=== PATIENT | male | born 1950 | race American Indian/Alaskan Native ===

== ENCOUNTER 2017-10-11 08:01 | Outpatient (CLI) | payer OTHER ==
--- NOTE | 2017-10-11 10:43 | Ultrasound Report ---
ULTRASOUND ABDOMINAL AORTA: 10/11/17 08:15:00 CLINICAL: AAA screening FINDINGS: Ultrasound of the abdominal aorta demonstrates a normal size aorta measuring 2.4 cm maximum. No abdominal aortic aneurysm. Minimal plaque. Right common iliac artery measures 1.3 cm diameter and the left common iliac artery measures 1.3 cm diameter. Normal blood flow demonstrated by color Doppler. IMPRESSION: Normal aorta
== END 2017-10-11 08:02 | disposition home or self-care (01) ==
LOC: SPVWC 08:01
PROVIDERS: ATTEND Internal Medicine
DX: Z13.6 Encounter for screening for cardiovascular disorders (principal); R09.89 Other specified symptoms and signs involving the circulatory and respiratory systems; Z87.891 Personal history of nicotine dependence
CPT/HCPCS: 76705

== ENCOUNTER 2021-07-15 07:40 | Day surgery (SDC) | payer MEDICARE, OTHER ==
[~2021-07-15 07:40] MED LIST: BUPIVACAINE/PF (0.5%) 5 MG/1 ML 30 ML VIAL INFILTRATI ONE; HEPARIN 10,000 UNITS/10 ML VIAL IV ONE; HEPARIN 10,000 UNITS/10 ML VIAL ONE; LIDOCAINE (1%) 10 MG/1 ML VIAL 20 ML MDV ONE; SODIUM CHLORIDE 0.9% 500 ML 500 ML ONE; SODIUM CHLORIDE 0.9% IRR 1,500 ML BOTTLE IR ONE; SODIUM CHLORIDE 0.9% IRR 500 ML BOTTLE IR ONE; SODIUM CHLORIDE 0.9% P/F 10 ML VIAL IV ONE; ceFAZolin/STERILE WATER 2 GM/20 ML SYRINGE IV NR; rifAMPin 600 MG VIAL IV ONE
[2021-07-15] MEDS ORDERED: SODIUM CHLORIDE 0.9% 1000 ML 1,000 ML ONE (08:07)
[2021-07-15 08:11] LABS: Hematocrit 32.9 % (35.5-45.6); Hemoglobin 10.6 gm/dl (11.8-15.2); Mean Corpuscular HGB Conc 32 % (32-34); Mean Corpuscular Volume 97 fl (84-94); Platelet Count 183 K/mm3 (140-440); Red Blood Count 3.38 M/mm3 (3.65-5.03); Red Cell Distribution Width 16.1 % (13.2-15.2)
[2021-07-15] MEDS ORDERED: BUPIVACAINE/PF (0.5%) 5 MG/1 ML 30 ML VIAL INFILTRATI ONE (08:30)
[2021-07-15] MEDS ORDERED: MIDAZOLAM 2 MG/2 ML INJ ONE ×2 (08:30→09:10)
[2021-07-15] MEDS ORDERED: dexAMETHasone 4 MG/ML VIAL ONE (08:30)
[2021-07-15] MEDS ORDERED: LIDOCAINE (1%) 10 MG/1 ML VIAL 20 ML MDV ONE (08:30)
[2021-07-15] MEDS ORDERED: fentaNYL 100 MCG/2 ML INJ ONE (08:31)
--- NOTE | 2021-07-15 08:33 | Anesthesia Day of Surgery ---
Anesthesia Day of Surgery - Day of Surgery Patient Examined: Yes Patient H&P Reviewed: Yes Patient is NPO: Yes Beta Blockers: Yes
--- NOTE | 2021-07-15 08:37 | Anesthesia Consultation ---
Anesthesia Consult and Med Hx Date of service: 07/15/21 - Airway Anesthetic Teeth Evaluation: Caps ROM Head & Neck: Adequate Mental/Hyoid Distance: Adequate Mallampati Class: Class II Intubation Access Assessment: Good - Pre-Operative Health Status ASA Pre-Surgery Classification: ASA3 Nerve Block: IS (Block; GA if needed) - Pulmonary Hx Smoking: No (FORMER) Hx Asthma: Yes Hx Sleep Apnea: Yes - Cardiovascular System Hx Hypertension: Yes (Hx CHF; states no issues now) Hx Coronary Artery Disease: No (Had stress test last year and states it was ok) Hx Peripheral Vascular Disease: Yes - Central Nervous System Hx Neuromuscular Disorder: Yes (Gout) Hx Psychiatric Problems: No - Gastrointestinal Hx Gastroesophageal Reflux Disease: Yes (Occasionally, dietary) - Endocrine Hx Renal Disease: Yes Hx End Stage Renal Disease: Yes (Last HD yesterday. Pt states potassium runs high) Hx Non-Insulin Dependent Diabetes: Yes - Hematic Hx Anemia: Yes Hx Sickle Cell Disease: No - Other Systems Hx Alcohol Use: No Hx Substance Use: No Hx Cancer: No
[2021-07-15] MEDS ORDERED: HYDROmorphone 1 MG/1 ML INJ IV PRN ×2 (08:39)
[2021-07-15] MEDS ORDERED: ONDANSETRON 4 MG/2 ML INJ IV PRN (08:39)
[2021-07-15] MEDS ORDERED: SODIUM CHLORIDE 0.9% 250ML 0 ML ONE (08:43)
[2021-07-15] MEDS ORDERED: rifAMPin 600 MG VIAL ONE (08:43)
[2021-07-15] MEDS ORDERED: SODIUM CHLORIDE P/F VIAL 10 ML 0 ML ONE (08:43)
[2021-07-15] MEDS ORDERED: SODIUM CHLORIDE 0.9% 1000 ML 1,000 ML IV SCH (08:45)
--- NOTE | 2021-07-15 08:55 | Short Stay Summary ---
Short Stay Documentation Date of service: 07/15/21 Narrative H&P: The patient is a 70-year-old male with a history of end-stage renal disease who is currently on hemodialysis through a right brachiocephalic arteriovenous fistula. Despite the fistula having an arterial anastomosis at the brachial artery the fistula runs in retrograde fashion through the forearm cephalic vein and this is the actual cannulation zone. This causes swelling in the patient's right arm and hand as well as decrease clearance on dialysis. The patient has had the fistula for nearly a year and has had multiple interventions and despite interventions this is not corrected the direction of flow. He is in need of revision of the fistula with distalization of the anastomosis of the cephalic vein to the radial artery and ligation of the anastomosis of the brachial artery. The plan was discussed with the patient who expressed understanding and agrees. - History Past Medical History: anemia, CAD, diabetes, dialysis, ESRD, heart failure, hypertension, hyperlipidemia, other (Sleep apnea, asthma) Past Surgical History: appendectomy, cataract removal, Other (Creation of right brachiocephalic arteriovenous fistula) Social history: - Allergies and Medications Current Medications: Allergies No Known Allergies Allergy (Verified 06/17/21 16:50) Home Medications Medication Instructions Recorded Confirmed Last Taken Type Albuterol Sulfate [Proair 90 mcg IH PRN PRN 06/17/21 06/17/21 Unknown History Respiclick] Aspirin [Aspirin BABY CHEW TAB] 81 mg PO QDAY 06/17/21 06/17/21 Unknown History Cinacalcet [Sensipar] 30 mg PO QDAY 06/17/21 06/17/21 Unknown History Doxazosin [Cardura] 1 mg PO QDAY 06/17/21 06/17/21 Unknown History Ergocalciferol(Vitamin D2)(Nf) 1,250 mcg PO DAILY 06/17/21 06/17/21 Unknown History [Vitamin D (Nf)] Folic Acid/Vit B Complex and C 800 mcg PO DAILY 06/17/21 06/17/21 Unknown History [Dialyvite 800 Chewable Wafer] Furosemide [Lasix TAB] 80 mg PO BID 06/17/21 06/17/21 Unknown History ISOSORBIDE MONOnitrate [Imdur ER] 30 mg PO DAILY 06/17/21 06/17/21 Unknown History Insulin Aspart (Nf) [NovoLOG 0 units SQ AC PRN 06/17/21 06/17/21 Unknown History Flexpen] Insulin Detemir [Levemir Flextouch] 0 unit SQ HS PRN 06/17/21 06/17/21 Unknown History Ondansetron (Nf) [Zofran TAB] 4 mg PO Q12HR 06/17/21 06/17/21 Unknown History allopurinoL [Zyloprim] 100 mg PO BID 06/17/21 06/17/21 Unknown History amLODIPine [Norvasc] 10 mg PO DAILY 06/17/21 06/17/21 Unknown History carvediloL [Coreg] 12.5 mg PO BID 06/17/21 06/17/21 Unknown History hydrALAZINE [Apresoline TAB] 100 mg PO TID 06/17/21 06/17/21 Unknown History Active Medications Cefazolin Sodium (Cefazolin/Sterile Water 2 Gm/20 Ml Syringe) 2 gm IV PREOP NR Stop: 07/15/21 23:01 Hydromorphone HCl (Hydromorphone 1 Mg/1 Ml Inj) 0.25 mg IV Q10MIN PRN PRN Reason: Pain, Moderate (4-6) Hydromorphone HCl (Hydromorphone 1 Mg/1 Ml Inj) 0.5 mg IV Q10MIN PRN PRN Reason: Pain , Severe (7-10) Sodium Chloride (Nacl 0.9% 1000 Ml) 1,000 mls @ 42 mls/hr IV DIRECT KYE Ondansetron HCl (Ondansetron 4 Mg/2 Ml Inj) 4 mg IV ONCE PRN PRN Reason: Nausea And Vomiting Stop: 07/15/21 23:59 - Physical exam General appearance: no acute distress Lungs: Normal air movement Heart: Regular rate Gastrointestinal: normal Male Genitourinary: deferred Rectal Exam: deferred Extremities: abnormal (Right arm arteriovenous fistula with pulsatility in the forearm and thrill in the upper arm, swelling of the right hand with increased venous dilatation) - Brief post op/procedure progress note Date of procedure: 07/15/21 Pre-op diagnosis: Complications of Dialysis Access Post-op diagnosis: same Procedure: 1. Revision of Right Brachiocephalic Arteriovenous Fistula with Ligation of the Brachial Artery Anastomosis And Distalization of the Anastomosis to the Radial Artery 2. Revision of the Venous Outflow of the Right Arm Arteriovenous Fistula with Patch Angioplasty with Bovine Pericardial Patch Anesthesia: MAC, regional Surgeon: VICK ARMIJO Estimated blood loss: 50-100ml Pathology: none Condition: stable - Disposition Condition at discharge: Good Disposition: 01 HOME / SELF CARE / HOMELESS Short Stay Discharge Plan Activity: other (No heavy lifting with right arm for 2 weeks. Okay to continue using the right arm arteriovenous access for dialysis.) Wound: open to air, keep clean and dry, other (Okay to wash the right arm wounds with soap and water but do not soak in water for 2 weeks.) Follow up with: VICK ARMIJO MD [Staff Physician] - 14 Days Prescriptions: HYDROcodone/APAP 7.5-325 [[place] 7.5/325] 1 each PO Q6HR PRN #30 tablet PRN Reason: Pain
[2021-07-15] MEDS ORDERED: HYDROmorphone 1 MG/1 ML INJ ONE (09:10)
[2021-07-15] MEDS ORDERED: propofoL 200 MG/20 ML VIAL IV ONE ×2 (09:26)
[2021-07-15] MEDS ORDERED: KETAMINE/STERILE WATER 50 MG/ML SYRINGE ONE (09:30)
[2021-07-15] MEDS ORDERED: SODIUM CHLORIDE 0.9% IRR 1,500 ML BOTTLE IR ONE (10:02)
[2021-07-15] MEDS ORDERED: HEPARIN 10,000 UNITS/10 ML VIAL IV ONE (10:02)
[2021-07-15] MEDS ORDERED: SODIUM CHLORIDE 0.9% IRR 500 ML BOTTLE IR ONE (10:02)
--- NOTE | 2021-07-15 12:42 | Operative Report ---
Operative Report Operative Report: Date of Procedure: 07/15/2021 Pre-operative Diagnosis: Complications of Dialysis Access Post-operative Diagnosis: Same Procedure(s): 1. Revision of Right Brachiocephalic Arteriovenous Fistula with Ligation of the Brachial Artery Anastomosis And Distalization of the Anastomosis to the Radial Artery 2. Revision of the Venous Outflow of the Right Arm Arteriovenous Fistula with Patch Angioplasty with Bovine Pericardial Patch Surgeon: Ronnie Rivers M.D. Casting [employer] Pasting Supervisor: None Anesthesia: MAC/Regional EBL: 75 mL Counts: Correct Complications: None Condition: Stable Findings: There was a palpable thrill in the right arm arteriovenous fistula at the completion of the case. Specimen: None Indication: The patient is a 70-year-old male with history of end-stage renal disease who had creation of a right brachiocephalic arteriovenous fistula. Since the creation of the fistula it has run retrograde into the forearm portion of the cephalic vein and this is where it has been cannulated for dialysis. This is caused swelling and pain of his hand as well as decreased clearance while on dialysis. He is in need of revision of the fistula with distalization of the anastomosis to the radial artery to improve the clearance as well as decrease the venous congestion of his hand. He has been given the risk, benefits, and alternative procedures and consented to procedure. Description of Procedure: Prior to being transported to the operating room the patient had a regional block performed on his right arm. He was then transported to the operating room and adequately sedated. His right arm was then prepped and draped in normal sterile fashion. A longitudinal incision was then created on the distal wrist and sharp dissection was used to dissect down to the cephalic vein. The vein was then dissected circumferentially and side branches were suture ligated and divided. The vein was then left in place while I dissected the radial artery circumferentially and controlled with Vesseloops, in preparation for the arterial anastomosis. I then created a transverse incision, just below the ante cubital crease through the previously used incision, and carried this down to the anastomosis of his arteriovenous fistula. I used sharp dissection to dissect down to the anastomosis which had a stalk extending from the cephalic vein down to the brachial artery. I dissected this stock circumferentially. This was approximately 2 cm in length and allow me to place a hemostat on both the brachial artery side as well as the cephalic vein side and divide the vein in between the 2. I have oversewed each cuff closing both the venotomy as well as the arteriotomy, respectively, using 5-0 Prolene in running 2 layer fashion. I then removed the clamps and check for hemostasis. Once hemostasis was adequate I packed that wound with a Ray-Travis and then turned my attention to the distal anastomosis. I placed a 3-0 silk tie on the distal cephalic vein and then controlled the venous outflow with a bulldog clamp. I divided the cephalic vein and then systemically heparinized the patient with 3000 units of heparin IV. I used angled DeBakey clamps to control the flow in the radial artery and then created an arteriotomy using an 11 blade and Sr scissors. I created an end-to-side anastomosis using a 6-0 Prolene in running fashion. Prior to completing the anastomosis I flushed both the inflow and outflow of the radial artery as well as the cephalic vein. I reclamped all vessels and then flushed the arteriotomy with heparinized saline. I completed the anastomosis and removed all clamps allowing flow into the fistula which had pulsatile flow. This appeared to be due to an approximately 85% stenosis of the cephalic vein just above the antecubital crease. I used Metzenbaums to remove a thick fibrotic layer around the vein however this did not improve the flow so I decided to perform a patch angioplasty. I placed DeBakey clamps both proximal and distal to the area of stenosis using 11 blade and Sr scissors to create a venotomy. I then used a bovine pericardial patch and closed the venotomy using two 6-0 Prolene's in running fashion. Prior to completing the closure I flashed the inflow and outflow the vein and then flushed the venotomy with heparinized saline. I completed the closure and then released the clamps allowing flow to the fistula was now had a palpable thrill. Hemostasis within both wounds was achieved with a combination of manual pressure and Quick Clot. Once hemostasis was achieved both wounds were anesthetized with 0.5% Marcaine and closed in 2 layers using 3-0 Vicryl running fashion the deep dermal layer, 4-0 Monocryl in running fashion the subcuticular layer, and Dermabond address the skin. The patient tolerated the procedure well. All sponge, needle, and instrument counts were correct. The patient was taken to the recovery area in stable condition.
--- NOTE | 2021-07-15 13:21 | Post Anesthesia Evaluation ---
- Post Anesthesia Evaluation Patient Participated: Yes Airway Patent: Yes Stable Respiratory Function: Yes Nausea/Vomiting: No Temp > 96.8F: Yes Pain Manageable: Yes Adequeate Hydration: Yes Anesthesia Complications: No Block Receding Appropriately: Not Applicable Patient on Ventilator: No
[2021-07-15 20:00] VITALS: BP 127/59
== END 2021-07-15 07:41 | disposition home or self-care (01) ==
LOC: OR 07:40
PROVIDERS: ATTEND Surgery Vascular Surgery
DX: T82.848A Pain due to vascular prosthetic devices, implants and grafts, initial encounter (principal); I13.2 Hypertensive heart and chronic kidney disease with heart failure and with stage 5 chronic kidney disease, or end stage renal disease; E11.22 Type 2 diabetes mellitus with diabetic chronic kidney disease; E11.51 Type 2 diabetes mellitus with diabetic peripheral angiopathy without gangrene; N18.6 End stage renal disease; Z99.2 Dependence on renal dialysis; I50.9 Heart failure, unspecified; M10.9 Gout, unspecified; J45.909 Unspecified asthma, uncomplicated; K21.9 Gastro-esophageal reflux disease without esophagitis; Z79.899 Other long term (current) drug therapy; Z98.890 Other specified postprocedural states; Y83.8 Other surgical procedures as the cause of abnormal reaction of the patient, or of later complication, without mention of misadventure at the time of the procedure
CPT/HCPCS: 36415; 36832; 64450; 80048; 82962; 85027; C1768; J0690; J1100; J1170; J1644; J2250; J2704; J3010; J3490; J7030; J7040; U0003; J7120; Q0162; J7050

== ENCOUNTER 2021-11-28 11:20 | Day surgery (SDC) | payer MEDICARE ==
[2021-11-28] MEDS ORDERED: HEPARIN/NS 5000 UNIT/500ML 1,000 ML IR ONE (12:19)
[2021-11-28] MEDS ORDERED: ceFAZolin/Water 2 GM/20 ML 2 GM/20 ML SYRINGE IV ONE (12:20)
[2021-11-28 12:36] LABS: Calcium 9.4 mg/dL (8.4-10.2)
[2021-11-28] MEDS ORDERED: SODIUM CHLORIDE 0.9% 500 ML 500 ML IV SCH (13:00)
[2021-11-28] MEDS: fentaNYL 100 MCG/2 ML INJ ONE ×3 (13:47→14:33)
[2021-11-28] MEDS: MIDAZOLAM 2 MG/2 ML INJ ONE ×3 (13:47→14:30)
[2021-11-28] MEDS: LIDOCAINE (1%) 10 MG/1 ML VIAL 20 ML MDV ONE ×2 (13:48→14:01)
[2021-11-28] MEDS ORDERED: HEPARIN/NS 5000 UNIT/500ML 500 ML IR ONE (13:56)
[2021-11-28] MEDS ORDERED: ALTEPLASE 2 MG INJ ONE (14:03)
[2021-11-28] MEDS ORDERED: WATER FOR INJ Sterile (PF) 10 ML ONE (14:05)
[2021-11-28] MEDS ORDERED: HEPARIN 10,000 UNITS/10 ML VIAL ONE (14:06)
--- NOTE | 2021-11-28 15:20 | Short Stay Summary ---
Short Stay Documentation Date of service: 11/28/21 Narrative H&P: See H&P - History H&P: obtained from office - Allergies and Medications Current Medications: Allergies No Known Allergies Allergy (Verified 06/17/21 16:50) Home Medications Medication Instructions Recorded Confirmed Last Taken Type Albuterol Sulfate [Proair 90 mcg IH PRN PRN 06/17/21 11/28/21 11/28/21 History Respiclick] Aspirin [Aspirin BABY CHEW TAB] 81 mg PO QDAY 06/17/21 11/28/21 11/27/21 History Cinacalcet [Sensipar] 30 mg PO QDAY 06/17/21 11/28/21 11/27/21 History Doxazosin [Cardura] 1 mg PO QDAY 06/17/21 11/28/21 11/27/21 History Ergocalciferol(Vitamin D2)(Nf) 1,250 mcg PO DAILY 06/17/21 11/28/21 11/27/21 History [Vitamin D (Nf)] Folic Acid/Vit B Complex and C 800 mcg PO DAILY 06/17/21 11/28/21 11/27/21 History [Dialyvite 800 Chewable Wafer] Furosemide [Lasix TAB] 80 mg PO BID 06/17/21 11/28/21 11/27/21 History ISOSORBIDE MONOnitrate [Imdur ER] 30 mg PO DAILY 06/17/21 11/28/21 11/27/21 History Insulin Aspart (Nf) [NovoLOG 5 units SQ AC PRN 06/17/21 11/28/21 Unknown History Flexpen] Insulin Detemir [Levemir Flextouch] 20 unit SQ HS PRN 06/17/21 11/28/21 11/27/21 History Ondansetron (Nf) [Zofran TAB] 4 mg PO Q12HR 06/17/21 11/28/21 11/27/21 History allopurinoL [Zyloprim] 100 mg PO BID 06/17/21 11/28/21 11/27/21 History amLODIPine 10 mg PO DAILY 06/17/21 11/28/21 11/27/21 History carvediloL [Coreg] 12.5 mg PO BID 06/17/21 11/28/21 11/27/21 History hydrALAZINE [Apresoline TAB] 100 mg PO TID 06/17/21 11/28/21 11/27/21 History Active Medications Sodium Chloride (Nacl 0.9% 500 Ml) 500 mls @ 50 mls/hr IV DIRECT KYE Last Admin: 11/28/21 13:45 Dose: 0 mls - Brief post op/procedure progress note Date of procedure: 11/28/21 Pre-op diagnosis: Complications of Dialysis Access Post-op diagnosis: same Procedure: 1. Access Right Arm AV Fistula with 7 Hungarian Sheath Venous 2. Diagnostic Fistulogram with Central Venogram 3. Percutaneous Pharmacomechanical Thrombectomy of Right Arm AV Fistula With 6 mg of tPA and Balloon Maceration 4. Angioplasty and Stent of Left Arm Arteriovenous Fistula with 8 x 5 cm Viabahn Stent Graft and 8 x 40 Conquest Balloon in the Forearm, followed by 7 x 200 EverCross Balloon in the Upper Arm Cephalic Vein 5. Radiologic Supervision with Interpretation 6. Monitored Moderate Sedation (Total Anesthesia Time: 58 Minutes) Anesthesia: local, other (Monitored Moderate Sedation) Surgeon: VICK ARMIJO Estimated blood loss: minimal Pathology: none Condition: stable - Disposition Condition at discharge: Good Disposition: 01 HOME / SELF CARE / HOMELESS Short Stay Discharge Plan Activity: other (No heavy lifting, with right arm, for 24 hours.) Special Instructions: other (Okay to remove the dressing tomorrow during tao lysis. Remove the sutures by pulling the longer of the 2 strings. Okay to begin using the fistula for dialysis.) Follow up with: VICK ARMIJO MD [Staff Physician] - 14 Days Prescriptions: Apixaban [Eliquis] 5 mg PO BID 28 Days #56 tab
[2021-11-28] MEDS ORDERED: APIXABAN 5 MG TAB PO SCH (15:30)
[2021-11-28] MEDS ORDERED: APIXABAN 5 MG TAB ONE (15:38)
--- NOTE | 2021-11-28 16:00 | Operative Report ---
Operative Report Operative Report: Date of Procedure: 11/28/2021 Pre-operative Diagnosis: Complications of Dialysis Access Post-operative Diagnosis: Same Procedure(s): 1. Access Right Arm AV Fistula with 7 Dominican Sheath Venous 2. Diagnostic Fistulogram with Central Venogram 3. Percutaneous Pharmacomechanical Thrombectomy of Right Arm AV Fistula With 6 mg of tPA and Balloon Maceration 4. Angioplasty and Stent of Left Arm Arteriovenous Fistula with 8 x 5 cm Viabahn Stent Graft and 8 x 40 Conquest Balloon in the Forearm, followed by 7 x 200 EverCross Balloon in the Upper Arm Cephalic Vein 5. Radiologic Supervision with Interpretation 6. Monitored Moderate Sedation (Total Anesthesia Time: 58 Minutes) Surgeon: Ronnie Rivers M.D. Boots And Shoes Supervisor: None Anesthesia: Local/Monitored Moderate Sedation Monitored Moderate Sedation: Total Anesthesia Time 58 Minutes EBL: Minimal Counts: Correct Complications: None Condition: Stable Specimen: None Indication: The patient is a 71-year-old male with history of end-stage renal disease who is on hemodialysis through a right internal jugular permacath secondary to "pulling clots" from his right arm Ann-Marie fistula. He is in need of a diagnostic fistulogram with possible intervention of the right arm arteriovenous fistula. He was given the risk, benefits, and alternative procedures and consented to the procedure. Angiographic Findings: The diagnostic fistulogram revealed the cannulation zone was dilated with multiple branches connecting to the upper arm cephalic vein. The median cubital vein was occluded with thrombus and thrombus extending into the distal cephalic vein. The mid and proximal cephalic vein was patent without evidence of thrombus however there was stenosis ranging from 50 to 60%. The central venous system was patent without evidence of flow-limiting stenosis. After intervention the median cubital vein was patent with less than 15% residual stenosis. The cephalic vein was patent with less than 15% residual stenosis. There was some residual thrombus in the distal cephalic vein however this was not flow-limiting. Description of Procedure: The patient was brought to the Hardware Engineering Manager and laid in supine position. After timeout was performed his right arm was prepped and draped in normal sterile fashion. Lidocaine was used to anesthetize the skin and soft tissue overlying the fistula, near the arterial inflow, and a 21-gauge micropuncture needle was used to access the fistula towards the venous outflow. A 0.018 micropuncture wire was advanced into the fistula and after removing the needle a 7 Dominican sheath was placed by Seldinger technique. A diagnostic fistulogram with central venogram was then performed with the previously described findings. I was able to cross the area of occlusion using a 0.018 V18 wire and a vertebral catheter. I removed the catheter and then performed angioplasty of the area of occlusion, to macerate the thrombus, using a 5 x 100 Dillan Balloon. I then injected 6 mg of tPA and allow this to dwell for approximately 10 minutes. The follow-up fistulogram revealed approximately 50% residual stenosis as well as residual thrombus within the vein. I exchanged the V 18 wire for 0.014 Choice PT Wire and then performed angioplasty of the previously occluded area using a 6 x 100 AngioSculpt Balloon which resulted in approximately 30 to 40% residual stenosis as well as residual thrombus. It appeared that the thrombus was quite chronic so I decided to place a stent graft within the median cubital vein. I advanced an 8 x 5 cm Viabahn Stent Graft into position and deployed it. I postdilated the stent graft with an 8 x 40 Conquest Balloon which resulted in less than 15% residual stenosis. I then exchanged the Choice PT wire for a 0.035 Bentson wire and performed angioplasty of the areas of stenosis within the cephalic vein using a 7 x 200 EverCross Balloon which resulted in less than 15% residual stenosis and brisk flow of contrast through the fistula. There was residual thrombus within the distal cephalic vein however this was not flow-limiting and I felt this would be best treated with 4 weeks of anticoagulation rather than additional attempts at removing the thrombus. At this point I remove the wire and used a 2-0 Ethilon in slipknot fashion to close the entry site after r emoving the sheath. A sterile dressing was then applied to the entry site and the patient was transported to the recovery area in stable condition.
[2021-11-28 16:21] VITALS: BP 148/62
== END 2021-11-28 16:53 | disposition home or self-care (01) ==
LOC: CATHLABREC 11:20 → CATH 11:20 → CATHLABREC 16:53
PROVIDERS: ATTEND Surgery Vascular Surgery
DX: T82.868A Thrombosis due to vascular prosthetic devices, implants and grafts, initial encounter (principal); T82.590A Other mechanical complication of surgically created arteriovenous fistula, initial encounter; I13.2 Hypertensive heart and chronic kidney disease with heart failure and with stage 5 chronic kidney disease, or end stage renal disease; E11.22 Type 2 diabetes mellitus with diabetic chronic kidney disease; N18.6 End stage renal disease; I50.9 Heart failure, unspecified; E11.51 Type 2 diabetes mellitus with diabetic peripheral angiopathy without gangrene; E78.00 Pure hypercholesterolemia, unspecified; J45.909 Unspecified asthma, uncomplicated; G47.30 Sleep apnea, unspecified; K21.9 Gastro-esophageal reflux disease without esophagitis; M19.90 Unspecified osteoarthritis, unspecified site; D64.9 Anemia, unspecified; Z79.899 Other long term (current) drug therapy; Z79.4 Long term (current) use of insulin; Z87.891 Personal history of nicotine dependence; Z98.890 Other specified postprocedural states; Y82.8 Other medical devices associated with adverse incidents; Y92.89 Other specified places as the place of occurrence of the external cause; I25.2 Old myocardial infarction
CPT/HCPCS: 36415; 36906; 80048; 99156; 99157; C1725; C1769; C1874; C1894; J0690; J1644; J2250; J2997; J3010; J7040; Q9967